=== PATIENT | female | born 1995 | race Caucasian/White ===

== ENCOUNTER 2020-02-25 17:06 | Emergency (ER) | payer OTHER ==
[~2020-02-25] VITALS: Ht 157.5 cm; Wt 84.8 kg
[2020-02-25] MEDS ORDERED: KEFLEX500 M1 PO (18:05)
[2020-02-25 18:22] VITALS: BP 123/75
== END 2020-02-25 18:23 | disposition home or self-care (01) ==
LOC: M.ERS 17:06
DX: K03.81 Cracked tooth (principal); F90.9 Attention-deficit hyperactivity disorder, unspecified type; Z88.0 Allergy status to penicillin; Z88.1 Allergy status to other antibiotic agents